=== PATIENT | male | born 1960 | race Caucasian/White ===

== ENCOUNTER → 2017-12-18 | Day surgery (SDC) | payer BC ==
--- NOTE | 2017-12-19 19:06 | PATH ---
Cytology Non-Gynecological Report Patient Name: VANDANA POLANCO [facility]. Rec. #: [id number] /Age/Gender: 1960 (Age: 57) / M Account: [id number] Location: RADIOLOGY INTER Taken: 12/18/2017 Received: 12/18/2017 Reported: 12/19/2017 Physicians: Cr Parker M.D. Specimen(s) Received LEFT THYROID Clinical History Left thyroid nodule, 3.14 x 1.98 x 2.00 cm Final Diagnosis THYROID, LEFT, FINE NEEDLE ASPIRATION: SATISFACTORY FOR EVALUATION. BETHESDA CLASS II: BENIGN. CYTOLOGIC FINDINGS ARE CONSISTENT WITH A BENIGN FOLLICULAR NODULE. SMALL FOLLICULAR CELLS, SCATTERED MACROPHAGES, AND COLLOID PRESENT. Electronically Signed Micheline Frederick M.D. Gross Description Received are eight direct smears, four of which are air-dried and Diff-Quik stained, and four of which are alcohol fixed and Pap stained. Also received is 20 ml of bloody formalin from which one cellblock is prepared.
== END | disposition home or self-care (01) ==
LOC: JRADIR 08:23
PROVIDERS: ATTEND Internal Medicine Endocrinology, Diabetes & Metabolism
PROC: 0G9G3ZX Drainage of Left Thyroid Gland Lobe, Percutaneous Approach, Diagnostic (ICD-10-PCS; principal; 2017-12-18)
PROC: BG44ZZZ Ultrasonography of Thyroid Gland (ICD-10-PCS; 2017-12-18)
DX: E04.1 Nontoxic single thyroid nodule (principal)
CPT/HCPCS: 76942; 88173; 88305-TC

== ENCOUNTER 2020-02-21 04:49 | Day surgery (SDC) | payer BC ==
[2020-02-19 15:42] VITALS: BMI 29.2
--- OUTSIDE RECORDS SUMMARY | 2020-02-21 05:09 | XMS ---
:1960 Author Organization [facility] Support Name Relationship Address Phone [employer] JUAN Unavailable [address] [place] [address] AILEEN POLANCO [address] [place] [address] Re-disclosure Warning The records that you are about to access may contain information from federally- assisted alcohol or drug abuse programs. If such information is present, then the following federally mandated warning applies: This information has been disclosed to you from records protected by federal confidentiality rules (42 CFR part 2). The federal rules prohibit you from making any further disclosure of this information unless further disclosure is expressly permitted by the written consent of the person to whom it pertains or as otherwise permitted by 42 CFR part 2. A general authorization for the release of medical or other information is NOT sufficient for this purpose. The Federal rules restrict any use of the information to criminally investigate or prosecute any alcohol or drug abuse patient.The records that you are about to access may contain highly sensitive health information, the redisclosure of which is protected by Article 27-F of the [facility] Public Health law. If you continue you may haveaccess to information: Regarding HIV / AIDS; Provided by facilities licensed or operated by the [facility] Office of Mental Health; or Provided by the [facility] Office for People With Developmental Disabilities. If such information is present, then the following [facility] mandated warning applies: This information has been disclosed to you from confidential records which are protected by state law. State law prohibits you from making any further disclosure of this information without the specific written consent of the person to whom it pertains, or as otherwise permitted by law. Any unauthorized further disclosure in violation of state law may result in a fine or prison sentence or both. A general authorization for the release of medical or other information is NOT sufficient authorization for further disclosure. Allergies and Adverse Reactions Type Description Substance Reaction Status Data Source(s ) Adverse Reaction N.K.D.A. N.K.D.A. Info Not Active eCW1 ([facility] int [facility]) Propensity to Propensity to No Known eCW1 (Sa int adverse adverse reactions allergies [facility] reactions (disorder) Practice ) (disorder) Encounters Encounter Providers Location Date Indications Data Source(s ) 07/16/2018 04:54:00 eCW1 ([facility] EST - [facility]) 04:54:00 PM EST 05/07/2018 04:45:00 eCW1 ([facility] EST - 05/07/2018 [facility]) 04:45:00 PM EST Immunizations Vaccine Date Status Description Data Source(s) pneumococcal 05/07/2018 completed eCW1 ([facility] polysaccharide PPV23 12:00:00 AM EST [facility] ) Medications Medication Brand Start Product Dose Route Administrative Pharmacy [facility] Indications Reaction Description Data Name Date Form Instructions Instructions Source(s) 60 ACTUAT Asmane 07/26/ Aerosol Inhala 220 MCG/INH complet 2 sprays eCW1 mometasone x 60 2017 Powder tion Inhalation q ed ([facility] furoate Metere 12:00: Breath Jackson s 0.22 d 00 AM [facility] MG/ACTUAT Doses EST d Practice Dry Powder [facility]) Inhaler [Asmanex] Asmanex 60 Metered Doses Insurance Providers Payer name Policy type / Policy ID Covered Covered libertarian's Policy Plan Coverage type libertarian ID relationship to [employer] Information napier BC POS [id number] SP [id number] Problems, Conditions, and Diagnoses Code Display Name Description Problem Type Effective Data Dates Source(s) B02.9 Zoster without Herpes zoster Problem eCW1 (S aint complications without [facility] complication Medical Practice ) Z00.01 Encounter for Encounter for Problem eCW1 (Sa int general adult general adult [facility] medical examination medical examination Medical with abnormal with abnormal Practice ) findings findings K58.9 Irritable bowel IBS (irritable Problem eCW1 ([facility] syndrome without bowel syndrome) [facility]) 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 eCW 1 ([facility] nervous system neuralgia [facility] involvement [facility]) J44.9 Chronic obstructive Chronic obstructive Problem eCW1 ([facility] pulmonary disease, pulmonary disease, [facility] unspecified unspecified COPD Medical type Practice PC) J43.9 Emphysema, Emphysema, Diagnosis eCW1 ([facility] unspecified unspecified [facility] ) 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 eCW1 ( [facility] polyneuropathy zoster) [facility] polyneuropathy Medical [facility] ) N40.0 Benign prostatic BPH (benign Problem eCW1 (S aint hyperplasia without prostatic [facility] lower urinary tract hyperplasia) [facility] symptoms [facility]) B02.9 Zoster without Herpes zoster Problem eCW1 ([facility] aint complications without [facility] complication [facility] ) Z00.01 Encounter for Encounter for Problem eCW1 (Sa int general adult general adult [facility] medical examination medical examination Medical with abnormal with abnormal Practice ) findings findings K58.9 Irritable bowel IBS (irritable Problem eCW1 ([facility] syndrome without bowel syndrome) [facility] diarrhea [facility] ) 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 eCW 1 ([facility] nervous system neuralgia [facility] involvement [facility] ) J43.9 Emphysema, Emphysema, Problem eCW1 ([facility] unspecified unspecified [facility] ) J44.9 Chronic obstructive Chronic obstructive Problem eCW1 ([facility] pulmonary disease, pulmonary disease, [facility] unspecified unspecified COPD Medical type Practice ) 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 eCW1 ( [facility] polyneuropathy zoster) [facility] polyneuropathy Medical Practice ) N40.0 Benign prostatic BPH (benign Problem eCW1 (S aint hyperplasia without prostatic [facility] lower urinary tract hyperplasia) [facility] symptoms Practice ) Surgeries/Procedures Procedure Description Date Indications Data Source(s) HANDLG&/OR CONVEY OF 05/07/2018 eCW1 ([facility] SPEC FOR TR OFFICE TO 12:00:00 AM EST Med ical Practice ) LAB OFFICE OUTPATIENT VISIT 05/07/2018 eCW1 ([facility] 25 MINUTES 12:00:00 AM EST Medical Prac shaila ) IMADM PRQ ID SUBQ/IM 05/07/2018 eCW1 ([facility] NJXS 1 VACCINE 12:00:00 AM EST Medical Pr actice ) COLLECTION VENOUS BLOOD 05/07/2018 eCW1 ([facility] VENIPUNCTURE 12:00:00 AM EST Medical Prac shaila PC) Results ID Date Data Source [id number] 02/16/2020 12:15:00 PM EDT [facility] Name Value Range Interpretation Description Data Sup porting Code Source(s) Document(s ) SARS [facility] coronavirus 2 RNA This lab was ordered by [facility] and reported by [facility]. Procedure Vital Signs ID Date Data Source UNK Name Value Range Interpretation Code Description Data Source(s) Systolic blood 127 mm[Hg] 127 mm[Hg] eCW1 ([facility] pressure [facility]) Diastolic blood 81 mm[Hg] 81 mm[Hg] eCW1 ([facility] nt pressure [facility]) Heart rate 84 /min 84 /min eCW1 ([facility]) Body weight 160 [lb_av] 160 [lb_av] [facility])
[2020-02-21] MEDS ORDERED: ceFAZolin SODIUM 1 GM VIAL ONE (07:19)
[2020-02-21] MEDS ORDERED: DEXAMETHASONE SOD PHOSPHATE 4 MG/1 ML VIAL ONE (07:19)
[2020-02-21] MEDS ORDERED: EPHEDRINE SULFATE/0.9% NACL/PF 50 MG/10 ML SYRINGE NR ONE (07:19)
[2020-02-21] MEDS ORDERED: LIDOCAINE HCL/PF 2% SDV 5ML VIAL ONE (07:19)
[2020-02-21] MEDS ORDERED: PROPOFOL 20 ML ONE ×3 (07:20)
[2020-02-21] MEDS ORDERED: SUCCINYLCHOLINE CHLORIDE 200 MG/10 ML SYRINGE ONE (07:20)
[2020-02-21] MEDS ORDERED: LIDOCAINE 1%/EPI 1:100000 (50 ML MULTI DOSE VIAL) ONE (07:21)
[2020-02-21] MEDS ORDERED: MIDAZOLAM HCL 2 MG/2 ML SINGLE DOSE VIAL ONE (07:25)
[2020-02-21] MEDS ORDERED: THROMBIN (BOVINE) 5,000 UNIT VIAL TP ONE ×2 (07:26→08:47)
[2020-02-21] MEDS ORDERED: oxyCODONE HCL 5 MG TABLET PO PRN ×2 (07:45)
[2020-02-21] MEDS ORDERED: LACTATED RINGERS SOLUTION 1,000 ML IV SCH (07:45)
[2020-02-21] MEDS ORDERED: ONDANSETRON 4 MG/2 ML VIAL IVPUSH PRN (07:45)
[2020-02-21] MEDS ORDERED: ceFAZolin 2 GRAM PREMIX BAG IVPB ONE (08:30)
[2020-02-21] MEDS ORDERED: LIDOCAINE 1%/EPI 1:100000 (20 ML MULTI DOSE VIAL) IJ ONE (08:47)
[2020-02-21] MEDS ORDERED: BUPIVACAINE HCL/PF 0.5% (5 MG/ML) 30 ML VIAL IJ ONE (08:47)
[2020-02-21] MEDS ORDERED: BACITRACIN 15 GM TUBE TOPICAL OINTMENT ONE (09:29)
[2020-02-21] MEDS ORDERED: ACETAMINOPHEN 1000 MG/100 ML VIAL (NON FORMULARY) IVPB ONE ×2 (09:55→10:41)
--- NOTE | 2020-02-21 10:11 | OP ---
Operative Note - Note: Operative Date: 02/21/20 Pre-Operative Diagnosis: left thyroid nodule Operation: left thyroidectomy, replant of left parthyroid. left parathryoid biopsy Surgeon: Daren Cm Tray Room Worker: Shanice Hallman Anesthesiologist/[facility] OFFICER: Rosalba Roca Anesthesia: General Specimens Removed: left thyroid, left parpthryoid biopsy Estimated Blood Loss (mls): 5 Fluid Volume Replaced (mls): 800 Operative Report Dictated: Yes
--- NOTE | 2020-02-21 10:12 | SURG ---
Surgery Lathe Operator Contact Lens Note Lathe Operator Contact Lens: Shanice Hallman PA-C Date of Service: 02/21/20 Diagnosis: left thyroid nodule Procedure: e left thyroidectomy, replant of left parthyroid. left parathryoid biopsy I was present for the entirety of the operative procedure. For further detail, please refer to operative report.
[2020-02-21] MEDS ORDERED: ACETAMINOPHEN INJECTION 100 ML IVPB ONE (10:33)
[2020-02-21 13:33] VITALS: BP 120/80; PULSE 83; TEMP 96.8
--- NOTE | 2020-02-23 09:57 | OP ---
DATE OF OPERATION: 02/21/2020 SURGICAL ATTENDING: Mik Lorenzo MD DIRECTOR MOBILE: UTE Cunha PREOPERATIVE DIAGNOSIS: Left thyroid mass. POSTOPERATIVE DIAGNOSIS: Left thyroid mass. ANESTHESIA: General endotracheal. PROCEDURE: 1. Left hemithyroidectomy. 2. Parathyroid reimplantation. 3. Neck ultrasound. DESCRIPTION OF PROCEDURE: Patient was taken to the operating room, placed in a supine position, endotracheally intubated. Neck ultrasound was performed showing a left thyroid mass with no extension and no lymphadenopathy. The neck was then prepped and draped in the usual sterile fashion. Local anesthesia was administered. A horizontal incision was made in the mid anterior neck and carried down through subcutaneous tissues and platysma. Subplatysmal flaps were raised superiorly and inferiorly and flap hooks were placed for exposure. The median raphe was incised and the left-sided strap muscles were elevated off of the thyroid gland. The recurrent laryngeal nerve and superior laryngeal nerves were identified and preserved. The superior, posterior and inferior attachments of the left thyroid lobe were transected. The left thyroid lobe was lifted off of the trachea and transected at the isthmus. It was checked for parathyroid tissue and a small parathyroid gland was identified. This was removed. A biopsy was sent and it was then reimplanted into the left sternocleidomastoid muscle. Hemostasis was achieved with electrocautery and Gelfoam and thrombin. A Valsalva maneuver was performed showing no bleeding. The wound was then closed in 3 layers. Dermabond was placed. The patient was then awakened, extubated and taken to recovery in stable condition. Dr. Lorenzo, the attending surgeon, was present throughout the entire procedure. MIK LORENZO M.D. [id number]
--- NOTE | 2020-02-25 12:23 | PATH ---
Surgical Pathology Report Patient Name: VANDANA POLANCO [facility]. Rec. #: [id number] /Age/Gender: 1960 (Age: 59) / M Account: [id number] Location: [facility] SURGICAL Taken: 02/21/2020 Received: 02/21/2020 Reported: 02/25/2020 Physicians: Daren Cm M.D. Specimen(s) Received A: LEFT THYROID LOBE B: LEFT PARATHYROID GLAND Clinical History Thyroid nodule Final Diagnosis A. LEFT THYROID LOBE, HEMITHYROIDECTOMY: THYROID TISSUE WITH NODULAR HYPERPLASIA. ONE MINUTE FOCUS OF PARATHYOID TISSUE. NEGATIVE FOR MALIGNANCY. B. LEFT PARATHYROID, BIOPSY: PORTION OF UNREMARKABLE PARATHYROID TISSUE. Electronically Signed Lanre Goldsmith M.D. Gross Description A. Received in formalin labeled "left thyroid lobe," is a 14 g, 4.0 x 2.5 x 2.3 cm intact thyroid lobe. The outer surface is retana-brown and smooth. Sectioning reveals a shultz-red, heterogeneous, well-circumscribed colloid nodule occupying the entire thyroid parenchyma. No remaining normal thyroid parenchyma is identified. The specimen is entirely and sequentially submitted in 8 cassettes. B. Received in formalin labeled "left parathyroid biopsy," is a 0.2 cm greatest dimension shultz soft tissue fragment. The specimen is submitted in toto in one cassette. /02/21/2020 [facility]/02/21/2020
== END 2020-02-21 13:45 | disposition home or self-care (01) ==
LOC: JASU-SURG 04:49
PROVIDERS: ATTEND Surgery
PROC: 0GSR0ZZ Reposition Parathyroid Gland, Open Approach (ICD-10-PCS; 2020-02-21)
PROC: 0GTG0ZZ Resection of Left Thyroid Gland Lobe, Open Approach (ICD-10-PCS; principal; 2020-02-21 08:00)
DX: E04.1 Nontoxic single thyroid nodule (principal)
CPT/HCPCS: 88305-TC; 88307-TC; 94760; J0131

== ENCOUNTER 2023-03-13 05:05 | Day surgery (SDC) | payer BC ==
[2023-03-09 11:13] VITALS: BMI 29.7
[2023-03-13] MEDS ORDERED: FENTANYL CITRATE/PF 50 MCG/ML VIAL ONE (08:38)
[2023-03-13] MEDS ORDERED: MIDAZOLAM HCL 2 MG/2 ML SINGLE DOSE VIAL ONE (08:38)
[2023-03-13] MEDS ORDERED: ONDANSETRON 4 MG/2 ML VIAL ONE (08:50)
[2023-03-13 09:15] VITALS: RESP 20
[2023-03-13 10:33] VITALS: BP 135/71; PULSE 67; TEMP 97
== END 2023-03-13 10:20 | disposition home or self-care (01) ==
LOC: JASU-SURG 05:05
PROVIDERS: ATTEND Urology
PROC: 0TF3XZZ Fragmentation in Right Kidney Pelvis, External Approach (ICD-10-PCS; principal; 2023-03-13 08:30)
DX: N20.0 Calculus of kidney (principal)